=== PATIENT | male | born 1975 | race Caucasian/White ===

== ENCOUNTER 2016-10-15 12:54 | Emergency (ER) | payer OTHER ==
[~2016-10-15] VITALS: Ht 182.9 cm; Wt 89.0 kg
[2016-10-15 12:56] VITALS: TEMP 36.5; Ht 182.9 cm; Wt 89.0 kg
[2016-10-15] MEDS ORDERED: RANITIDINE HCL 50 MG/100 ML D5W IV STA (13:19)
[2016-10-15] MEDS ORDERED: PANTOprazole INJ 80 MG in DEXTROSE 5% 100ML 100 ML IV SCH (13:30)
[2016-10-15] MEDS ORDERED: ONDANSETRON INJ 2 MG/ML 2 ML VIAL IV STA (13:30)
[2016-10-15] MEDS ORDERED: MoRPHine SULFATE 4 MG/ML 1 ML CARP\\VIAL IV STA (13:30)
[2016-10-15 14:15] LABS: BASO % 0.3 %; BASO ABS # 0.02 K/uL (0-0.2); COMPLETE YES; EOS % 1.5 %; HEMATOCRIT 40.6 % (42-52); LYMPH % 24.5 %; LYMPH ABS # 1.49 K/uL (1.2-3.4); MEAN CELL VOLUME 87.7 fL (80-100); MEAN CORPUSCULAR HEMOGLOBIN 31.7 pg (25-34); MEAN CORPUSCULAR HGB CONC 36.2 g/dl (32-36); MEAN PLATELET VOLUME 9.1 fL (7.4-10.4); MONO % 8.7 %; PLATELET COUNT 219 K/uL (130-400); RED BLOOD COUNT 4.63 M/uL (4.7-6.1); WHITE BLOOD COUNT 6.07 K/uL (4.8-10.8)
[2016-10-15] MEDS ORDERED: PANTOprazole INJ 80 MG in DEXTROSE 5% 100ML 100 ML IV STA (14:23)
[2016-10-15 14:27] LABS: PARTIAL THROMBOPLASTIN RATIO 0.9; PROTHROMBIN TIME (PATIENT) 10.9 SECONDS (9.0-12.0)
[2016-10-15 14:35] LABS: ALT/SGPT 44 U/L (12-78); AST/SGOT 23 U/L (15-37); BLOOD UREA NITROGEN 11 mg/dl (7-18); BUN/CREATININE RATIO 9.9 (10-20); CARBON DIOXIDE 26 mmol/L (21-32); CHLORIDE 108 mmol/L (98-107); GLUCOSE 105 mg/dl (70-99); POTASSIUM 3.6 mmol/L (3.5-5.1); SODIUM 142 mmol/L (136-145)
--- NOTE | 2016-10-15 14:36 | DIAGNOSTIC IMAGING REPORT ---
PA CHEST RADIOGRAPH AND UPRIGHT AND SUPINE AP RADIOGRAPHS OF THE ABDOMEN CLINICAL HISTORY: Upper GI bleed. Abdominal and back pain. COMPARISON STUDY: CT of the chest, abdomen and pelvis December 08, 2013. FINDINGS: Lung volumes are normal. No pneumothorax or pleural effusion is present. Pulmonary vascularity is normal. Cardiomediastinal silhouette is normal. There is no consolidation. There is no free air. The bowel gas pattern is normal. A round radiodensity projecting over the left iliac bone is likely on the patient. IMPRESSION: 1. No free air or evidence of bowel obstruction. 2. No acute cardiopulmonary findings. Electronically signed by: Yrn Johnson M.D. 10/15/2016 2:34 PM Dictated Date/Time: 10/15/2016 2:33 PM
[2016-10-15 14:37] LABS: ALKALINE PHOSPHATASE 61 U/L (45-117)
[2016-10-15] MEDS ORDERED: MoRPHine SULFATE 10 MG/ML CARP/VIAL IV STA (16:41)
[2016-10-15] MEDS ORDERED: OXYC1TAB3 PO (16:44)
[2016-10-15] MEDS ORDERED: OMEP20CA59 PO (16:44)
[2016-10-15 16:50] VITALS: BP 123/81; PULSE 65; O2SAT 100
[2016-10-15 17:24] LABS: URINE APPEARANCE CLEAR (CLEAR); URINE BILIRUBIN NEG (NEG); URINE COLOR YELLOW; URINE NITRITE NEG (NEG); URINE PH 5.5 (4.5-7.5); URINE SPECIFIC GRAVITY 1.014 (1.000-1.030); UROBILINOGEN NEG (NEG); ZZUR CULT IF INDIC CLEAN CATCH NO
[2016-10-15 17:25] LABS: MANUAL MICROSCOPIC REQUIRED? NO; REVIEW REQ? NO
--- NOTE | 2016-10-15 17:53 | EMERGENCY ROOM VISIT NOTE ---
History First contact with patient: 13:01 Chief Complaint: ABDOMINAL PAIN Stated Complaint: BAD PAINS IN BELLY History of Present Illness The patient is a 41 year old male who presents to the Emergency Room with complaints of intermittent epigastric pain and constant mid back pain. The patient reports that he has had this discomfort developed over the past week. It has worsened over the past 2 days. Since last weekend, the patient reports that he has had intermittent dark stools that have now become more constant. The patient has not noticed any significant weakness, nausea or vomiting. The patient drinks 2 cups of coffee in the morning. He denies any significant alcohol use. He comes of his worsening pain, he has taken large doses of ibuprofen and Tylenol as well. The patient also reports that he eats a lot of hot foods and "super hot" peppers. The patient denies any prior history of GI bleed. He denies prior history of abdominal surgeries. He currently rates his discomfort a 10 out of 10. Review of Systems HEENT: Denies dizziness, visual problems, hearing loss, tinnitus. Denies difficulty swallowing or oral lesions. PULMONARY: Denies cough, shortness of breath, sputum production or hemoptysis. CARDIOVASCULAR: Denies chest pain, palpitations, dyspnea on exertion, orthopnea or peripheral edema. GASTROINTESTINAL: Reports black diarrhea. He denies history of constipation or other GI history. GENITOURINARY: Denies dysuria, frequency, urgency or nocturia. NEUROLOGIC: Denies history of epilepsy, CVA, TIA or chronic headaches. MUSCULOSKELETAL: Denies history of joint tenderness/swelling. SKIN: Denies rashes or lesions. PSYCHIATRIC: Denies history of depression or mental illness. ENDOCRINE: Denies history of diabetes or thyroid disorders. Past Medical/Surgical History Medical Problems: (1) No Known Active Medical Problems Family History Unremarkable Social History Smoking Status: Current Every Day Smoker Alcohol Use: occasionally Marital Status: single Occupation Status: employed Current/Historical Medications Scheduled Omeprazole (Prilosec), 20 MG PO DAILY Scheduled PRN Oxycodone Ir (Roxicodone Ir), 1-2 TAB PO Q4H PRN for Pain Allergies Coded Allergies: No Known Allergies (Unverified , 10/15/16) Physical Exam Vital Signs Date Time Temp Pulse Resp B/P (MAP) Pulse Ox O2 Delivery O2 Flow Rate FiO2 10/15/16 16:50 65 18 123/81 100 Room Air 10/15/16 16:10 61 18 132/75 99 Room Air 10/15/16 14:30 72 18 116/61 96 Room Air 10/15/16 14:03 77 10/15/16 12:56 36.5 87 20 122/ 98 Room Air Physical Exam CONSTITUTIONAL: Healthy and well nourished. Alert and oriented X 3 with positive affect. Patient does not appear in any acute distress. HEENT: Normocephalic, atraumatic. Pupils equal, round and reactive. Ears and nares are clear. No obvious conjunctival pallor. No scleral icterus. OROPHARYNX: Mucous membranes are moist. No posterior pharyngeal erythema or tonsillar hypertrophy. NECK: Full active range of motion without discomfort. RESPIRATORY: Clear to auscultation bilaterally with no wheezing, crackles, rhonchi or stridor. CARDIOVASCULAR: Regular rate and rhythm with no murmurs, rubs or gallops. GASTROINTESTINAL: Bowel sounds present in all quadrants. Patient has mild epigastric tenderness to palpation. No hepatosplenomegaly. Negative McBurney' s point tenderness. No focal left lower quadrant tenderness to palpation. Negative CVA tenderness. No rigidity, guarding or rebound. MUSCULOSKELETAL: Full range of motion of all joints without discomfort. INTEGUMENTARY: No rash or other significant dermatologic conditions noted. HEMATOLOGIC: No ecchymosis or petechiae. NEUROLOGIC: No focal neurologic deficits noted. Medical Decision & Procedures ER Provider Diagnostic Interpretation: My interpretation of a two-view abdomen does not show any abdominal free air, obstruction or lower lung consolidations. Radiologist report is as follows: PA CHEST RADIOGRAPH AND UPRIGHT AND SUPINE AP RADIOGRAPHS OF THE ABDOMEN CLINICAL HISTORY: Upper GI bleed. Abdominal and back pain. COMPARISON STUDY: CT of the chest, abdomen and pelvis December 08, 2013. FINDINGS: Lung volumes are normal. No pneumothorax or pleural effusion is present. Pulmonary vascularity is normal. Cardiomediastinal silhouette is normal. There is no consolidation. There is no free air. The bowel gas pattern is normal. A round radiodensity projecting over the left iliac bone is likely on the patient. IMPRESSION: 1. No free air or evidence of bowel obstruction. 2. No acute cardiopulmonary findings. Laboratory Results 10/15/16 14:02 Red Blood Count 4.63, Mean Corpuscular Volume 87.7, Mean Corpuscular Hemoglobin 31.7, Mean Corpuscular Hemoglobin Concent 36.2, Mean Platelet Volume 9.1, Neutrophils (%) (Auto) 65.0, Lymphocytes (%) (Auto) 24.5, Monocytes (%) (Auto) 8.7, Eosinophils (%) (Auto) 1.5, Basophils (%) (Auto) 0.3, Neutrophils # (Auto) 3.94, Lymphocytes # (Auto) 1.49, Monocytes # (Auto) 0.53, Eosinophils # (Auto) 0.09, Basophils # (Auto) 0.02 10/15/16 14:02 Test 10/15/16 13:34 10/15/16 13:48 10/15/16 14:02 Urine Color YELLOW Urine Appearance CLEAR (CLEAR) Urine pH 5.5 (4.5-7.5) Urine Specific [place] 1.014 (1.000-1.030) Urine Protein NEG (NEG) Urine Glucose (UA) NEG (NEG) Urine Ketones NEG (NEG) Urine Occult Blood NEG (NEG) Urine Nitrite NEG (NEG) Urine Bilirubin NEG (NEG) Urine Urobilinogen NEG (NEG) Urine Leukocyte Esterase NEG (NEG) White Blood Count 6.07 K/uL (4.8-10.8) Red Blood Count 4.63 M/uL (4.7-6.1) Hemoglobin 14.7 g/dL (14.0-18.0) Hematocrit 40.6 % (42-52) Mean Corpuscular Volume 87.7 fL (80-100) Mean Corpuscular Hemoglobin 31.7 pg (25-34) Mean Corpuscular Hemoglobin Concent 36.2 g/dl (32-36) Platelet Count 219 K/uL (130-400) Mean Platelet Volume 9.1 fL (7.4-10.4) Neutrophils (%) (Auto) 65.0 % Lymphocytes (%) (Auto) 24.5 % Monocytes (%) (Auto) 8.7 % Eosinophils (%) (Auto) 1.5 % Basophils (%) (Auto) 0.3 % Neutrophils # (Auto) 3.94 K/uL (1.4-6.5) Lymphocytes # (Auto) 1.49 K/uL (1.2-3.4) Monocytes # (Auto) 0.53 K/uL (0.11-0.59) Eosinophils # (Auto) 0.09 K/uL (0-0.5) Basophils # (Auto) 0.02 K/uL (0-0.2) RDW Standard Deviation 39.4 fL (36.4-46.3) RDW Coefficient of Variation 12.4 % (11.5-14.5) Immature Granulocyte % (Auto) 0.0 % Immature Granulocyte # (Auto) 0.00 K/uL (0.00-0.02) Prothrombin Time 10.9 SECONDS (9.0-12.0) Prothromb Time International Ratio 1.0 (0.9-1.1) Activated Partial Thromboplast Time 24.5 SECONDS (21.0-31.0) Partial Thromboplastin Ratio 0.9 Anion Gap 8.0 mmol/L (3-11) Est Creatinine Clear Calc Drug Dose 99.0 ml/min Estimated GFR () 97.5 Estimated GFR (Non- 84.1 BUN/Creatinine Ratio 9.9 (10-20) Calcium Level 9.0 mg/dl (8.5-10.1) Total Bilirubin 0.4 mg/dl (0.2-1) Direct Bilirubin < 0.1 mg/dl (0-0.2) Aspartate Amino Transf (AST/SGOT) 23 U/L (15-37) Alanine Aminotransferase (ALT/SGPT) 44 U/L (12-78) Alkaline Phosphatase 61 U/L (45-117) Total Protein 7.8 gm/dl (6.4-8.2) Albumin 4.0 gm/dl (3.4-5.0) Lipase 116 U/L (73-393) Date/Time Source Procedure Growth Status 10/15/16 13:34 Stool C.difficile Toxin B Gene (PCR) - Final No C. difficile toxin B gene detected Complete The above labs were reviewed. CBC, partial renal profile, including BUN and creatinine are normal. LFTs and lipase are normal. Coagulation studies are normal. Stool studies does not show any fecal leukocytes. C. difficile is negative. Cultures are pending. Stool Hemoccult is grossly positive. Medications Administered Medications (Trade) Dose Ordered Sig/Eugenie Route Start Time Stop Time Status Last Admin Dose Admin Ranitidine HCl (zANTac IV) 50 mg NOW STAT IV 10/15/16 13:19 10/15/16 13:24 DC 9/8/17 14:12 50 MG Morphine Sulfate (MoRPHine SULFATE INJ) 4 mg NOW STAT IV 10/15/16 13:30 10/15/16 13:31 DC 10/15/16 14:12 4 MG Ondansetron HCl (Zofran Inj) 4 mg NOW STAT IV 10/15/16 13:30 10/15/16 13:31 DC 10/15/16 14:11 4 MG Pantoprazole Sodium 80 mg/ Dextrose 120 ml @ 400 mls/hr NOW STAT IV 10/15/16 14:23 10/15/16 14:40 DC 10/15/16 14:48 400 MLS/HR Morphine Sulfate (MoRPHine SULFATE INJ) 8 mg NOW STAT IV 10/15/16 16:41 10/15/16 16:42 DC 10/15/16 16:47 8 MG Procedure 1. IV hydration: The patient was administered normal saline 500 mL bolus 2. IV medications: Zofran 4 mg, morphine 4 mg, Zantac 50 mg and Protonix 80 mg IVP. The patient was administered an additional morphine 4 mg IVP prior to discharge. ED Course Patient history and physical exam were performed. Nurse's notes were reviewed. Vital signs were reviewed and were normal. The patient is not tachycardic or hypotensive. IV access was established, and labs were drawn. The patient was hydrated with normal saline, and received IV medications as discussed in the previous Procedure section. Review of labs shows no acute abnormalities. Stool studies were normal at this point, including a negative fecal leukocyte smear. C. difficile was also negative. Stool Hemoccult, performed by ut, was grossly positive. A two-view abdomen with PA chest view does not show any abdominal free air, consolidations or other acute findings. The patient was advised that he likely has a gastric bleed. The case was discussed with Dr. Martinez, ED attending physician, who agrees with workup and recommended discussing the case further with the mass communications professor on-call. I did discuss the case with Dr. Lundberg who recommended Prilosec 20 mg daily, and will see him in the office early next week. The office will call him with an appointment time. The patient was instructed to refrain from any further spicy foods, caffeine, alcohol and NSAIDs. He was instructed to return to the emergency department for any progressively worsening pain, rectal bleeding, coffee-ground emesis, chest pain, palpitations, shortness of breath or other concerning symptoms. The patient was provided prescriptions for Prilosec 20 mg daily 14, and OxyIR 5 mg, dispensed #15 with no refills. The patient was happy with plan of care, voiced understanding of all discharge instructions, and rated his discomfort a 7 out of 10 at the time of discharge. He was administered an additional dose of IV morphine prior to discharge. Medical Decision Patient presents to the emergency department with complaint of melanotic stool for the past week. His to Hemoccult is grossly positive. The patient is currently hemodynamically stable. BUN and creatinine are also normal as well. Initial evaluation studies are also normal. Given the patient's diet, use of caffeine and is collating use of NSAIDs for his pain, I do suspect that he does have a gastric bleed. I do feel that he is stable for outpatient follow-up, and was instructed to return to the emergency department for any worsening symptoms. Laboratory studies are not suggestive of pancreatitis, hepatitis or cholecystitis. I do not suspect cardiopulmonary etiology. Impression Primary Impression: Upper GI bleed Departure Information Prescriptions Oxycodone Ir (Roxicodone Ir) 5 Mg Tab 1-2 TAB PO Q4H Y for Pain, #15 TAB For Initial Treatment Prov: Tomer Perez PA 10/15/16 Omeprazole (Prilosec) 20 Mg Capcr 20 MG PO DAILY for 14 Days, #14 CAP Prov: Tomer Perez PA 10/15/16 Referrals Glynn Chandler M.D. (PCP) Patient Instructions My [facility]
== END 2016-10-15 17:07 | disposition home or self-care (01) ==
LOC: C.EDB 12:55 → C.EDC 17:07
DX: K92.2 Gastrointestinal hemorrhage, unspecified (principal); F17.200 Nicotine dependence, unspecified, uncomplicated